=== PATIENT | male | born 1970 | race African-American/Black ===

== ENCOUNTER 2017-03-04 15:11 | Emergency (ER) | payer OTHER ==
[~2017-03-04] VITALS: Ht 170.2 cm; Wt 106.0 kg
[~2017-03-04 15:11] MED LIST: AMLO-147 PO; BENAZEPRIL 40 MG; HYD25 PO; HYDR-2457 PO; HYDROCODONE 10/325 PO
[2017-03-04 15:16] VITALS: Ht 170.2 cm; Wt 106.0 kg
[2017-03-04 19:18] LABS: ADD SCAN DIFF NO
[2017-03-04 19:22] LABS: BASOPHILS % 0.3 % (0.0-2.0); EOSINOPHILS # 0.1 10^3/ul (0.0-0.5); HEMATOCRIT 44.3 % (42.0-52.0); HEMOGLOBIN 14.1 g/dl (14.0-18.0); LYMPHOCYTES % 23.2 % (15.0-51.0); MEAN CORPUSCULAR HEMOGLOBIN 26.7 pg (29.0-33.0); MEAN CORPUSCULAR HGB CONC 31.8 g/dl (32.0-37.0); MEAN CORPUSCULAR VOLUME 83.7 fl (82.0-101.0); MEAN PLATELET VOLUME 9.8 fl (7.4-10.4); MONOCYTE # 0.7 10^3/ul (0.3-0.9); MONOCYTES % 7.5 % (0.0-11.0); NEUTROPHIL # 5.9 10^3/ul (1.6-7.5); NEUTROPHILS % 67.7 % (39.0-77.0); PLATELET COUNT 271 10^3/UL (140-415); RED BLOOD COUNT 5.29 10^6/ul (4.70-6.10); RED CELL DISTRIBUTION WIDTH 14.7 % (11.5-14.5); WHITE BLOOD COUNT 8.7 10^3/ul (4.8-10.8)
[2017-03-04 19:24] LABS: ADD UMIC YES; URINE BILIRUBIN (Dip) NEGATIVE (NEGATIVE); URINE BLOOD (Dip) NEGATIVE (NEGATIVE); URINE COLOR LT. YELLOW (YELLOW); URINE GLUCOSE (Dip) NEGATIVE (NEGATIVE); URINE KETONES (Dip) NEGATIVE (NEGATIVE); URINE LEUKOCYTE ESTERASE (Dip) TRACE (NEGATIVE); URINE NITRITE (Dip) NEGATIVE (NEGATIVE); URINE TOTAL PROTEIN (Dip) NEGATIVE (NEGATIVE); URINE UROBILINOGEN (Dip) 0.2 E.U./dL (0.1-1.0)
[2017-03-04 19:30] LABS: ALBUMIN 4.3 g/dl (3.3-4.9); POTASSIUM 3.8 mmol/L (3.5-5.1)
[2017-03-04 19:32] LABS: CREATININE 1.19 mg/dl (0.61-1.24)
[2017-03-04 19:33] LABS: ALBUMIN/GLOBULIN RATIO 1.43; BILIRUBIN,INDIRECT 0.4 mg/dl (0-1.1); BILIRUBIN,TOTAL 0.4 mg/dl (0.2-1.3); TOTAL PROTEIN 7.3 g/dl (6.1-8.1)
[2017-03-04 19:34] LABS: CALCIUM 8.9 mg/dl (8.4-10.2)
[2017-03-04 19:45] LABS: SQUAMOUS EPITHELIAL CELL,UR OCCASIONAL; URINE RBCS 0-2 /HPF (0)
[2017-03-04 19:46] LABS: MUCUS,URINE FEW
[2017-03-04 20:20] VITALS: BP 142/68; PULSE 80; RESP 18; TEMP 97.3
--- NOTE | 2017-03-04 20:51 | ERD ---
ER Documentation Chief Complaint Date/Time DATE: 03/04/17 TIME: 20:48 Chief Complaint Complains of frequency of urination and cramping in the lower extremities HPI This patient is a 38-year-old male with history of hypertension presenting to the emergency department for frequent urination ongoing intimately for the past year. The patient states he is about 6 episodes of urination nightly. He recently had onset of full body cramping about 4 days ago which has been intermittent since then. The patient had routine labs done approximately 6 months ago and they were reportedly normal. The patient does not use drugs. The patient has no history of diabetes. There are no other complaints at this time. ROS All systems reviewed and are negative except as per history of present illness. Medications Home Meds Reported Medications Hydrocodone Bit-Acetaminophen (Hydrocodone Bit-Acetaminophen) 1 Each Tablet, 1 EACH PO Y 04/07/13 [Hydrocodone 10/325 ] No Conflict Check, PO PRN BID 04/02/13 [Benazepril 40MG Po] No Conflict Check, DAILY 04/02/13 Hydrochlorothiazide* (Hydrochlorothiazide*) 25 Mg Tab, 25 MG PO DAILY 04/02/13 Amlodipine Besylate* (Amlodipine Besylate*) 10 Mg Tablet, 10 MG PO DAILY 04/02/13 Allergies Allergies: Coded Allergies: No Known Allergy (Unverified , 04/07/13) PMhx/Soc Anesthesia Reaction: No Hx Neurological Disorder: No Hx Respiratory Disorders: No Hx Cardiac Disorders: Yes (HTN) Hx Psychiatric Problems: No Hx Miscellaneous Medical Probl: No Hx Alcohol Use: No Hx Substance Use: No Hx Tobacco Use: No FmHx Noncontributory for chief complaint Physical Exam Vitals Vital Signs Date Time Temp Pulse Resp B/P Pulse Ox O2 Delivery O2 Flow Rate FiO2 03/04/17 20:20 97.3 80 18 142/68 98 Room Air 03/04/17 15:16 98.2 74 20 160/87 96 Physical Exam Const: The patient is resting comfortably in no acute distress. Head: Atraumatic Eyes: Normal Conjunctiva ENT: Normal External Ears, Nose and Mouth. Neck: Full range of motion..~ No meningismus. Resp: Clear to auscultation bilaterally Cardio: Regular rate and rhythm, no murmurs Abd: Soft, non tender, non distended. Normal bowel sounds Skin: No petechiae or rashes Back: No midline or flank tenderness Ext: No cyanosis, or edema Neur: Awake and alert Psych: Normal Mood and Affect Result Diagram: 03/04/17190803/04/171908 Results 24 hrs Laboratory Tests Test 03/04/17 19:09 03/04/17 19:13 White Blood Count 8.710^3/ul Red Blood Count 5.2910^6/ul Hemoglobin 14.1g/dl Hematocrit 44.3% Mean Corpuscular Volume 83.7fl Mean Corpuscular Hemoglobin 26.7pg Mean Corpuscular Hemoglobin Concent 31.8g/dl Red Cell Distribution Width 14.7% Platelet Count 50195^3/UL Mean Platelet Volume 9.8fl Neutrophils % 67.7% Lymphocytes % 23.2% Monocytes % 7.5% Eosinophils % 1.0% Basophils % 0.3% Nucleated Red Blood Cells % 0.0/100WBC Neutrophils # 5.910^3/ul Lymphocytes # 2.010^3/ul Monocytes # 0.710^3/ul Eosinophils # 0.110^3/ul Basophils # 0.010^3/ul Nucleated Red Blood Cells # 0.010^3/ul Urine Color LT. YELLOW Urine Clarity CLEAR Urine pH 6.0 Urine Specific [place] 1.020 Urine Ketones NEGATIVE Urine Nitrite NEGATIVE Urine Bilirubin NEGATIVE Urine Urobilinogen 0.2 E.U./dL Urine Leukocyte Esterase TRACE Urine Microscopic RBC 0-2/HPF Urine Microscopic WBC 0-2/HPF Urine Squamous Epithelial Cells OCCASIONAL Urine Mucus FEW Urine Hemoglobin NEGATIVE Urine Glucose NEGATIVE% Urine Total Protein NEGATIVE Sodium Level 140mmol/L Potassium Level 3.8mmol/L Chloride Level 101mmol/L Carbon Dioxide Level 30mmol/L Anion Gap 13 Blood Urea Nitrogen 17mg/dl Creatinine 1.19mg/dl Glucose Level 94mg/dl Calcium Level 8.9mg/dl Total Bilirubin 0.4mg/dl Direct Bilirubin 0.00mg/dl Indirect Bilirubin 0.4mg/dl Aspartate Amino Transf (AST/SGOT) 36IU/L Alanine Aminotransferase (ALT/SGPT) 51IU/L Alkaline Phosphatase 75IU/L Total Protein 7.3g/dl Albumin 4.3g/dl Globulin 3.00g/dl Albumin/Globulin Ratio 1.43 Bedside Glucose 107mg/dL Procedures/MDM 46-year-old male presents to the emergency department secondary to complaints of frequent urination and full body cramping intermittently. On physical examination the patient's vitals are within normal limits with the exception of slightly elevated blood pressure 160/87. Patient's blood pressure was elevated (>120/80) but appears stable without evidence of hypertension emergency or urgency. The patient was counseled about the risks of hypertension and urged to pursue outpatient monitoring and therapy within a week with their primary care physician. The remainder of the physical examination was normal. Lab results showed no acute significant abnormalities. Urinalysis is negative for infection or proteinuria. POC glucose was 107. I low suspicion for diabetic ketoacidosis, urinary tract infection, pyelonephritis, septicemia, or other emergent conditions. The patient is stable for outpatient follow-up closely with his primary care physician. The patient understands the discharge plan and diagnosis. Because of symptoms have an unclear etiology at this time. The patient is to follow-up with his primary care physician for further testing. All questions and concerns were addressed. Strict ER return precautions discussed and the patient demonstrates good understanding. Departure Diagnosis: Primary Impression: Myalgia Additional Impression: Urinary frequency Condition: Fair Patient Instructions: Myalgias Additional Instructions: Follow up with your PCP within the next 1-3 days for a more thorough evaluation and a possible referral to a specialist. Return the the emergency department immediately if symptoms worsen or change. If you have any questions regarding medications, ask your pharmacist or us before you leave. If any adverse reactions, occur while taking your medications, discontinue the treatment and return to the emergency department immediately. If any new or worsening symptoms, uncontrolled fevers, or other unexplained symptoms occur, return to the emergency department immediately. Take your medications as directed, and complete the entire course of treatment. JARET BRUSH PA-C March 04, 2017 20:51
== END 2017-03-04 20:20 | disposition home or self-care (01) ==
LOC: FTE 15:11
DX: M79.1 Myalgia (principal); I10 Essential (primary) hypertension
CPT/HCPCS: 36415; 80053; 81001; 82962; 85025; Z7502; 81003; 99283